=== PATIENT | female | born 1955 | race Caucasian/White ===

== ENCOUNTER → 2016-07-21 | Outpatient (CLI) | payer BC, OTHER ==
[~2016-07-21] MED LIST: DOCU-94 PO; HYDR-5688 PO; MULT-513 PO; ONDA4TAB10 SL; OXYC1TAB3 PO; PANT40TA PO; SENN1TAB77 PO
--- NOTE | 2016-07-21 15:47 | MAMMOGRAPHY REPORT ---
BILATERAL DIGITAL SCREENING MAMMOGRAM TOMOSYNTHESIS WITH CAD: 07/21/2016 CLINICAL HISTORY: Routine screening. Patient has no complaints. TECHNIQUE: Bilateral CC and MLO 2-D digital and tomosynthesis images, right XCCL 2-D digital images were obtained. COMPARISON: Comparison is made to exams dated: 01/23/2013 mammogram, 10/27/2011 mammogram - [facility], 05/25/2006 mammogram, 11/01/2011 mammogram, 11/01/2011 ultrasound, and 05/10/2012 u ltrasound - [facility]. BREAST COMPOSITION: There are scattered areas of fibroglandular density in both breasts. FINDINGS: There are scattered benign-appearing round and punctate microcalcifications in the breasts . No new suspicious mass, architectural distortion or cluster of microcalcifications is seen. IMPRESSION: ACR BI-RADS CATEGORY 1: NEGATIVE There is no mammographic evidence of malignancy. A 1 year screening mammogram is recommended. The p atient will receive written notification of the results. Approximately 10% of breast cancers are not detected with mammography. A negative mammographic repor t should not delay biopsy if a clinically suggestive mass is present. Liset Healy M.D. ay/:07/21/2016 15:00:13 Pumper Hand: Leana GARAY(Serg)(Bryan), [facility] letter sent: Normal 1/2 BI-RADS Code: ACR BI-RADS Category 1: Negative
== END | disposition home or self-care (01) ==
LOC: C.MAMM 14:16
PROVIDERS: ATTEND Internal Medicine
DX: Z12.31 Encounter for screening mammogram for malignant neoplasm of breast (principal)

== ENCOUNTER → 2017-07-25 | Outpatient (CLI) | payer OTHER ==
[~2017-07-25] MED LIST changes: -DOCU-94 PO; -HYDR-5688 PO; -ONDA4TAB10 SL; -OXYC1TAB3 PO; -SENN1TAB77 PO
--- NOTE | 2017-07-26 07:49 | MAMMOGRAPHY REPORT ---
BILATERAL DIGITAL SCREENING MAMMOGRAM TOMOSYNTHESIS WITH CAD: 07/25/2017 CLINICAL HISTORY: Routine screening. Patient has no complaints. TECHNIQUE: Breast tomosynthesis in addition to standard 2D mammography was performed. Current study was also evaluated with a Computer Aided Detection (CAD) system. COMPARISON: Comparison is made to exams dated: 07/21/2016 mammogram, 01/23/2013 mammogram, 10/27/2011 eliseo mogram, 05/10/2012 mammogram - [facility], 05/25/2006 mammogram, and 09/04/2003 mammo gram. BREAST COMPOSITION: There are scattered areas of fibroglandular density in both breasts. FINDINGS: The parenchymal pattern is similar to prior mammograms although there have been involution al changes comparing to more remote prior mammograms. There is stable asymmetry in the lateral left breast. No developing mass, architectural distortion or cluster of suspicious microcalcifications is seen. IMPRESSION: ACR BI-RADS CATEGORY 2: BENIGN There is no mammographic evidence of malignancy. A 1 year screening mammogram is recommended. The pa tient will receive written notification of the results. Approximately 10% of breast cancers are not detected with mammography. A negative mammographic report should not delay biopsy if a clinically suggestive mass is present. Liset Healy M.D. ay/:07/25/2017 14:57:13 Concert Singer: Karla RICHARDS)(M), [facility] letter sent: Normal 1/2 BI-RADS Code: ACR BI-RADS Category 2: Benign
== END | disposition home or self-care (01) ==
LOC: C.MAMM 14:22
PROVIDERS: ATTEND Internal Medicine
DX: Z12.31 Encounter for screening mammogram for malignant neoplasm of breast (principal)